=== PATIENT | male | born 1990 | race Caucasian/White ===

== ENCOUNTER 2018-01-20 22:44 | Emergency (ER) | payer OTHER ==
[~2018-01-20] VITALS: Ht 170.2 cm; Wt 111.1 kg
[2018-01-20 23:17] VITALS: Ht 170.2 cm; Wt 111.1 kg
[2018-01-21 00:22] VITALS: BP 128/75
== END 2018-01-21 00:34 | disposition home or self-care (01) ==
LOC: ED 22:44
DX: L03.116 Cellulitis of left lower limb (principal); R03.0 Elevated blood-pressure reading, without diagnosis of hypertension
CPT/HCPCS: J0696; J2001